=== PATIENT | male | born 1990 | race Caucasian/White ===

== ENCOUNTER 2018-01-29 20:32 | Inpatient (IN) | payer OTHER ==
[~2018-01-29] VITALS: Ht 177.8 cm; Wt 73.5 kg
[2018-01-29 20:38] VITALS: BP 131/90
[2018-01-29] MEDS ORDERED: LEXAPRO20 MG PO (20:43)
[2018-01-29] MEDS ORDERED: SEROQUEL XR150 M1 PO (20:44)
[2018-01-29 21:10] LABS: HEMATOCRIT 52.2 % (42.0-52.0); MCH 33.2 pg (26.0-34.0); MCHC 34.4 g/dL (28.0-37.0); MCV 96.5 fL (80.0-100.0); MPV 8.5 fl. (7.2-11.1); NUCLEATED RBCS 0 /100WBC; PLATELET COUNT* 188 thou/uL (150-400); RBC 5.41 mil/uL (4.50-6.00); RDW-CV 13.7 % (10.5-14.5); WBC 12.3 thou/uL (4.0-11.0)
--- NOTE | 2018-01-29 21:16 | NUR ---
ON TRIAGE QUESTIONS, PT STATES THOUGHTS OF LIFE NOT BEING WORTH LIVING. STATES LOTS OF PAIN AND SICK OF BEING SICK, BUT DENIES BEING SUICIDAL OR HAVING ANY PLANS FOR SUICIDE. CHARGE NURSE NOTIFIED. PT DENIES WANTING TO END LIFE.
[2018-01-29 21:17] LABS: APTT 24.1 Seconds (25.0-31.3); INR 1.1; PROTIME 11.2 Seconds (9.20-11.50)
[2018-01-29 21:25] LABS: CREATININE 0.9 mg/dL (0.6-1.3)
[2018-01-29 21:29] LABS: ALBUMIN 4.8 g/dL (3.4-5.0); MAGNESIUM 1.5 mg/dL (1.8-2.4); TOTAL BILIRUBIN 3.4 mg/dL (<0.1-1.0); TOTAL PROTEIN 8.4 g/dL (6.4-8.2)
[2018-01-29 21:36] LABS: URINE BILIRUBIN NEGATIVE (Negative); URINE BLOOD NEGATIVE (Negative); URINE CLARITY CLEAR; URINE COLOR YELLOW; URINE GLUCOSE-RANDOM NEGATIVE (Negative); URINE LEUKOCYTES-REFLEX NEGATIVE (Negative); URINE NITRITE-REFLEX NEGATIVE (Negative); URINE PROTEIN NEGATIVE (Negative); URINE SPECIFIC GRAVITY >= 1.030 (1.005-1.030); URINE UROBILINOGEN 0.2 E.U./dl (0.2-1.0)
[2018-01-29 21:37] LABS: URINE KETONES 3+ (Negative)
[2018-01-29 21:40] LABS: ABSOLUTE LYMPHOCYTES 2.1 thou/uL (0.8-5.3); ABSOLUTE MONOCYTES 0.2 thou/uL (0.0-1.2); ANISOCYTOSIS 1+; PLATELET ESTIMATE ADEQUATE
[2018-01-29 21:41] LABS: TOXIC GRANULATION 1+
[2018-01-29 21:47] LABS: AMP/METHAMP Negative (Negative); BARBITURATES Negative (Negative); BENZODIAZEPINES Negative (Negative); COCAINE Negative (Negative); METHADONE Negative (Negative); OPIATES Negative (Negative); PCP Negative (Negative); THC POSITIVE (Negative)
[2018-01-30] VITALS (7 sets, daily range): BP systolic 112–145; BP diastolic 70–97
[2018-01-30 04:52] LABS: HEMATOCRIT 48.8 % (42.0-52.0); HEMOGLOBIN 16.3 gm/dL (14.0-18.0); MCH 33.2 pg (26.0-34.0); MCHC 33.5 g/dL (28.0-37.0); MCV 99.1 fL (80.0-100.0); MPV 8.7 fl. (7.2-11.1); RBC 4.92 mil/uL (4.50-6.00); RDW-CV 13.8 % (10.5-14.5); WBC 11.8 thou/uL (4.0-11.0)
[2018-01-30 05:16] LABS: ALBUMIN 4.1 g/dL (3.4-5.0); CALCIUM 8.8 mg/dL (8.5-10.1); MAGNESIUM 2.1 mg/dL (1.8-2.4); PHOSPHORUS* 3.6 mg/dL (2.5-4.9); TOTAL BILIRUBIN 2.8 mg/dL (<0.1-1.0); TOTAL PROTEIN 7.2 g/dL (6.4-8.2)
[2018-01-30 05:20] LABS: POTASSIUM 4.3 mmol/L (3.5-5.1)
--- NOTE | 2018-01-30 06:12 | NUR ---
RECEIVED REPORT FROM ER NURSE MARY LOU AT 0000, PT ARRIVED TO UNIT AT 0015. PT ORIENTED TO ROOM AND CALL LIGHT. PT C/O N/V, TREMORS VISIBLE, PT MODERATELY ANXIOUS. INITIAL CIWA-AR SCORE 10. DR. SANTANA NOTIFIED AT 0130, NEW ORDERS RECEIVED. IV FLUIDS INFUSING, RECREATIONAL RESORT MANAGER IN PLACE, TRACING SINUS ARRHYTHMIA. HOURLY ROUNDING COMPLETED. CALL LIGHT WITHIN REACH.
[2018-01-30 08:33] LABS: CALCIUM 8.2 mg/dL (8.5-10.1)
--- NOTE | 2018-01-30 11:10 | EKG ---
[place] [address] ELECTROCARDIOGRAM REPORT Name: ROOSEVELT IBRAHIM Room: [address] ADM IN .R.#: [id number] Admission: 01/29/18 Attend Phys: Ray Sandoval Discharge: Date of : 88 Report #: [id number] THIS REPORT FOR: //name// [facility] ED Test Date: 2018-01-29 Test Time: 21:47:06 Pat Name: ROOSEVELT AKINSKINS Department: Room: [facility] Gender: M Visual Coordinator: Lisa SMITH : 1990 Requested By: Radha Nieves Order Number: [id number] MD: Napoleon Almaraz Measurements Intervals [place] Rate: 62 P: 257 MN: 109 QRS: -44 QRSD: 87 T: -6 QT: 399 QTc: 406 Interpretive Statements Ectopic atrial rhythm Short MN interval Left anterior fascicular block Borderline T abnormalities, inferior leads No previous ECG available for comparison Electronically Signed On 01-30-2018 11:10:20 SERVICE ESTABLISHMENT ATTENDANT by Napoleon Almaraz [email or web address] <ELECTRONICALLY SIGNED> By: Napoleon Almaraz MD, FACC 01/30/18 1110 2147 2147 Napoleon Almaraz MD, FAC /EPI
--- NOTE | 2018-01-30 16:01 | NUR ---
ATTEMPTED TO SEE PT, WAS SEDATED AFTER ATIVAN. WILL ATTEMPT TO SEE TOMORROW
[2018-01-31] VITALS: BP 113/62
[2018-01-31 04:55] LABS: HEMATOCRIT 44.1 % (42.0-52.0); MCH 33.8 pg (26.0-34.0); MCV 99.6 fL (80.0-100.0); MPV 8.3 fl. (7.2-11.1); RBC 4.43 mil/uL (4.50-6.00); RDW-CV 13.7 % (10.5-14.5); WBC 5.1 thou/uL (4.0-11.0)
[2018-01-31 05:24] LABS: CALCIUM 8.3 mg/dL (8.5-10.1); CREATININE 0.8 mg/dL (0.6-1.3); MAGNESIUM 1.9 mg/dL (1.8-2.4); TOTAL BILIRUBIN 2.8 mg/dL (<0.1-1.0); TOTAL PROTEIN 5.5 g/dL (6.4-8.2)
[2018-01-31 05:31] LABS: POTASSIUM 3.2 mmol/L (3.5-5.1)
--- NOTE | 2018-01-31 07:05 | NUR ---
RECEIVED REPORT AND ASSUMED CARE AT 1900. VSS. CARDIAC MONITORING IN PLACE. PT REPORTS MILD HEADACHE, NAUSEA. PRN MEDICATION ADMIN PER ORDERS. ASSESSMENT COMPLETED CHARTED.DISCUSSED PLAN OF CARE WITH PT, VERBALIZED UNDERSTANDING. HOURLY ROUNDING COMPLETED AND ALL NEEDS MET. PT UPA D GLENNY IN ROOM, ON RA CIWA COMPLETED Q4 1999=10 0000= 9 0400= 4. MEDICATION ADMIN PER EMAR. NURSING WILL CONTINUE TO MONITOR
[2018-01-31 08:25] VITALS: BP 109/71
--- NOTE | 2018-01-31 11:48 | NUR ---
MET WITH PT TO DISCUSS HOME SITUATION/DC PLANNING. PT LIVES WITH HIS BROTHER. HIS PARENTS LIVE CLOSEBY AND ARE SUPPORTIVE. PT STATES HE LOST HIS JOB LAST MONTH, THOUGHT HE HAD INSURANCE BUT NO LONGER. DID TALK WITH HIM ABOUT CONTACTING THE EMPLOYER ABOUT 'COBRA'. HE STATED HE WOULD OR HIS FAMILY COULD HELP HIM. PT REPORTS THAT HE DOES ABUSE ETOH AND STRUGGLES WTIH DEPRESSION. HAS BEEN ON MEDS THRU DR SOLORIO IN [place] AND STATES STILL TAKING THEM. HE HAS BEEN TO INPT ETOH REHAB AT [facility] OUT OF STATE AND STAYED SOBER ABOUT 2 WKS. HAS BEEN TO AA AND HAS BEEN TO [facility] FOR ASSESSMENT IN THE PAST. SUPPORT GIVEN, TALKED WITH HIM ABOUT ETOH USE/ADDITION AND DISCUSSED OPTIONS FOR REHAB. ENCOURAGED HIM TO CONTACT [facility] FOR ASSESSMENT AND POSSIBLE [place] AA AND FINDING A SPONSOR. HE SEEMED MOTIVATED TO GET HELP. PT PLANS TO RETURN HOME WITH HIS BROTHER AT [place]. GAVE COMMUNITY RESOURCES AND FIND A PHYSICIAN INFO ALSO WILL FOLLOW
--- NOTE | 2018-01-31 12:27 | NUR ---
PT ALERT, ORIENTED AND ALL VSS ON ROOMA AIR. CIWA PROTOCOL PER ORDERS. PT STATES FEELING DEPRESSED, DENIES SI/HI/AVH. STATES HE IS INTERESTED IN TREATMENT UPON DC. EDUCATED ON SAFETY AND PLAN OF CARE. CALL LIGHT IN REACH. PLEASE SEE ASSESSMENT FOR ADDITIONAL INFORMATION. WILL CONT MONITOR
[2018-01-31 16:00] VITALS: BP 104/70
[2018-01-31 20:00] VITALS: BP 114/79
[2018-02-01 04:07] LABS: HEMATOCRIT 46.2 % (42.0-52.0); HEMOGLOBIN 15.8 gm/dL (14.0-18.0); MCH 33.9 pg (26.0-34.0); MCHC 34.2 g/dL (28.0-37.0); MCV 99.2 fL (80.0-100.0); MPV 8.4 fl. (7.2-11.1); RBC 4.66 mil/uL (4.50-6.00); RDW-CV 13.6 % (10.5-14.5)
[2018-02-01 04:45] LABS: DIRECT BILIRUBIN 0.3 mg/dL (<0.1-0.3); TOTAL BILIRUBIN 2.8 mg/dL (<0.1-1.0)
[2018-02-01 04:50] LABS: ALBUMIN 3.1 g/dL (3.4-5.0); CALCIUM 8.8 mg/dL (8.5-10.1); CREATININE 0.7 mg/dL (0.6-1.3); MAGNESIUM 1.7 mg/dL (1.8-2.4); PHOSPHORUS* 2.5 mg/dL (2.5-4.9); POTASSIUM 3.8 mmol/L (3.5-5.1); TOTAL BILIRUBIN 2.8 mg/dL (<0.1-1.0); TOTAL PROTEIN 5.7 g/dL (6.4-8.2)
--- NOTE | 2018-02-01 05:40 | NUR ---
ASSUMED PATIENT CARE AT 1930. PATIENT ALERT ANDORIENTED TIMES FOUR. NO OCMPLAINTS OF PAIN, MINOR NAUSEA AND SOME ANXIETY NOTED. ALSO PRESENT WERE SLIGHT TREMORS IN BILATERAL ARMS AND HANDS, STATED THAT HE WAS ANXIOUS, MEDICATIONS GIVEN. WELDER PRODUCTION LINE COMBINATION AND HOURLY TOUNDING COMPLETED CHARTED
[2018-02-01 08:51] VITALS: BP 120/87
--- NOTE | 2018-02-01 10:00 | NUR ---
TRANSFER NOTE - REC REPORT FROM CONSTANTINO HURST. NO QUESTIONS. ALL BELONGINGS PRESENT WITH PT. NO COMPLAINTS AT THIS TIME. ORIENTED TO PHONE AND CALL LIGHT SYSTEM. WILL CONTINUE TO MONITOR.
[2018-02-01 12:03] VITALS: BP 114/87
--- NOTE | 2018-02-01 16:02 | NUR ---
SHIFT NOTE - PT OFF UNIT THIS AFTERNOON FOR CCK-PIPIDA. PT STILL WITH FINE TREMOR. ATIVAN IS HELPING. STATES HE FEELS BETTER THAN WHEN HE FIRST CAME IN. WILL CONTINUE TO MONITOR.
[2018-02-01 20:08] VITALS: BP 116/86
[2018-02-02] VITALS: BP 123/85
[2018-02-02 04:00] VITALS: BP 118/86
[2018-02-02 05:15] LABS: HEMATOCRIT 46.9 % (42.0-52.0); MCH 33.6 pg (26.0-34.0); MCHC 34.1 g/dL (28.0-37.0); MCV 98.5 fL (80.0-100.0); MPV 8.7 fl. (7.2-11.1); RBC 4.76 mil/uL (4.50-6.00); RDW-CV 13.5 % (10.5-14.5); WBC 6.4 thou/uL (4.0-11.0)
[2018-02-02 05:27] LABS: ALBUMIN 3.2 g/dL (3.4-5.0); CALCIUM 8.9 mg/dL (8.5-10.1); CREATININE 0.7 mg/dL (0.6-1.3); MAGNESIUM 1.7 mg/dL (1.8-2.4); POTASSIUM 3.8 mmol/L (3.5-5.1); TOTAL BILIRUBIN 1.8 mg/dL (<0.1-1.0); TOTAL PROTEIN 5.8 g/dL (6.4-8.2)
[2018-02-02 07:50] VITALS: BP 111/79
[2018-02-02 11:34] VITALS: BP 108/75
[2018-02-02] MEDS ORDERED: MELATONIN5 M1 PO (12:11)
[2018-02-02] MEDS ORDERED: CELEXA40 MG PO (12:11)
[2018-02-02] MEDS ORDERED: PRENATAL PO (12:11)
--- NOTE | 2018-02-02 12:36 | NUR ---
CONTINUE TO FOLLOW, HAS ORDERS FOR DC HOME. REVIEWED ETOH REHAB RESOURCES WTIH PT. HE STATED HIS PARENTS ARE ASSISTING HIM WITH FINDING REHAB AFTER DC. ENCOURAGEMENT GIVEN
[2018-02-02 13:58] VITALS: BP 108/75
[2018-02-02 15:49] VITALS: BP 120/88
--- NOTE | 2018-02-02 16:32 | NUR ---
PT CARE ASSUMED AFTER REPORT. ASSESSMENT COMPLETE. SR ON MONITOR. PT DISCHARGED HOME. COPY OF DISCHARGE PAPERWORK TO PT WITH EXPLAINATION. PT VERBALIZED UNDERSTANDING. IV ACCESS REMOVED. PT [facility] WITH NURDING STAFF TO MAIN ENTRANCE WHERE HE NET HIS RIDE.
--- NOTE | 2018-02-03 12:23 | CON ---
[address] [address] CONSULTATION Name: ROOSEVELT IBRAHIM Room: [address]#: [id number] Admission: 01/29/18 Attend Phys: Ray Sandoval Discharge: 02/02/18 Date of : 88 Report #: [id number] THIS REPORT FOR: //name// CC: USMAN physician/PCP Pablito Hopkins DATE OF SERVICE: 01/30/2018 HISTORY OF PRESENT ILLNESS: This is a 27-year-old man with past medical history of alcohol abuse and depression who is presenting with an episode of acute alcohol binge. The patient reports he goes on episodes of alcohol binge when he consumes about a fifth of hard liquor every day for 2-3 days. These are followed by episodes of nausea and vomiting followed by loose stools. The patient reports he has had several episodes of emesis prior to presentation to the hospital and some included blood-tinged emesis. The patient also reports passing loose stools and having about 3-4 bowel movements per day. The patient reports epigastric abdominal pain along with nausea and vomiting. The patient reports these symptoms happen to him whenever he ingests large amount of alcohol. PAST MEDICAL HISTORY: Depression. PAST SURGICAL HISTORY: None. SOCIAL HISTORY: The patient smokes a few cigarettes every day. Reports drinking up to a fifth of hard liquor every day and also reports intermittent marijuana use. FAMILY HISTORY: There is no family history of colorectal, gastric or esophageal cancer. REVIEW OF SYSTEMS: A comprehensive 10-point review of systems is negative except for what was mentioned in the HPI. PHYSICAL EXAMINATION: GENERAL: The patient is alert, awake and oriented x 3. HEENT: Pupils are equal, round, reactive to light and accommodation. Mucous membranes are moist. There is no congestion. LUNGS: Clear to auscultation bilaterally. CARDIOVASCULAR: Rate and rhythm regular, S1 and S2 present. ABDOMEN: Soft. There is no distention, guarding or rigidity. EXTREMITIES: Warm and well perfused. NEUROLOGIC: The patient is extremely tremulous, arousable and moves all extremities easily. VITAL SIGNS: Temperature 36.6, pulse rate 118, respirations 16, blood pressure 117/70, pulse ox is 95% on room air ____. [place] [address] CONSULTATION Name: ALEXANDRIA,ROOSEVELT Lu Room: [address]#: [id number] Admission: 01/29/18 Attend Phys: Ray Sandoval Discharge: 02/02/18 Date of : 88 Report #: [id number] REVIEW OF SYSTEMS: Comprehensive 10-point review of systems is negative except for what was mentioned in the HPI. LABORATORY DATA: Hemoglobin 16.3, hematocrit 48.8 and platelet count 147 and WBC count 11.8. Sodium 138, potassium 4.3, chloride 98, bicarbonate 18, BUN 7 and creatinine 1. AST 39, ALT 43 and alkaline phosphatase 61. Lipase 125. Abdomen and pelvis CT performed demonstrates enlarged ____ colon with diffuse wall thickening suggestive of colitis. ____ almost the entire colon sparing the distal sigmoid and rectal vault regions. There is then the hepatic steatosis present. ASSESSMENT AND PLAN: This is a pleasant 27-year-old male with past medical history of depression and alcohol abuse who presents with another episode of alcohol binge causing nausea, vomiting and diarrhea. The patient did notice some amount of blood-tinged emesis during his episodes of nausea. The patient's hemoglobin appears to be stable and there are no signs of active GI bleeding at this time. Therefore, we will hold off on EGD at this time. The patient does have evidence of colitis on CT scan. I would recommend stool culture and C. diff to evaluate if there is an infectious cause. Further recommendations will be based on these results. I would continue placing him on a clear liquid diet and Pepcid b.i.d. If his symptoms of reflux and nausea do not improve, we can consider escalating it to PPI b.i.d. <ELECTRONICALLY SIGNED> By: Lenny Suarez MD 02/03/18 1223 2312 [id number] Suarez MD /nt
== END 2018-02-02 18:00 | disposition home or self-care (01) | DRG 392 ==
LOC: M.ERS 20:32 → M.2W 23:03 → M.TBA-ER 23:03 → M.2W 01-30 00:04 → M.ORTHSURG 01-31 19:09 → M.2W 02-01 09:48
PROVIDERS: Internal Medicine; Internal Medicine Gastroenterology; Nurse Practitioner Family; ADMIT Internal Medicine
DX: A08.4 Viral intestinal infection, unspecified (principal); K92.0 Hematemesis; F10.239 Alcohol dependence with withdrawal, unspecified; F12.90 Cannabis use, unspecified, uncomplicated; F32.9 Major depressive disorder, single episode, unspecified; F17.210 Nicotine dependence, cigarettes, uncomplicated; F10.229 Alcohol dependence with intoxication, unspecified; Z79.899 Other long term (current) drug therapy

== ENCOUNTER 2018-02-15 18:22 | Emergency (ER) | payer OTHER ==
[~2018-02-15] VITALS: Ht 177.8 cm; Wt 72.6 kg
[~2018-02-15 18:22] MED LIST: CELEXA40 MG PO; LEXAPRO20 MG PO; MELATONIN5 M1 PO; PRENATAL PO; SEROQUEL XR150 M1 PO
[2018-02-15] MEDS ORDERED: LEXAPRO 10 MG T10 M2 PO (18:47)
[2018-02-15 19:16] LABS: URINE BLOOD NEGATIVE (Negative); URINE CLARITY CLEAR; URINE COLOR YELLOW; URINE GLUCOSE-RANDOM NEGATIVE (Negative); URINE KETONES 1+ (Negative); URINE LEUKOCYTES-REFLEX NEGATIVE (Negative); URINE NITRITE-REFLEX NEGATIVE (Negative); URINE PROTEIN 2+ (Negative)
[2018-02-15 19:19] LABS: ICTOTEST (BILI CONFIRMATORY) Negative (Negative); URINE BILIRUBIN 1+ (Negative)
[2018-02-15 19:27] LABS: HYALINE CASTS 0-3 Few /LPF (None Seen); MUCUS 4-6 Moderate strn/LPF (None Seen); URINE WBC-REFLEX 0-5 Rare /HPF (0-5)
[2018-02-15 19:28] LABS: BACTERIA-REFLEX 1-9 Few /HPF (None Seen); CRYSTALS None Seen /LPF (None Seen); SQUAMOUS NONE SEEN /LPF (0-3); URINE RBC None Seen /HPF (0-2)
[2018-02-15 19:36] LABS: HEMOGLOBIN 18.1 gm/dL (14.0-18.0); MCH 32.6 pg (26.0-34.0); MCHC 34.1 g/dL (28.0-37.0); MCV 95.7 fL (80.0-100.0); MPV 8.3 fl. (7.2-11.1); NUCLEATED RBCS 0 /100WBC; PLATELET COUNT* 374 thou/uL (150-400); RBC 5.54 mil/uL (4.50-6.00); RDW-CV 13.8 % (10.5-14.5); WBC 17.8 thou/uL (4.0-11.0)
[2018-02-15 19:43] LABS: CREATININE 1.3 mg/dL (0.6-1.3); POTASSIUM 3.4 mmol/L (3.5-5.1)
[2018-02-15 19:48] LABS: ALBUMIN 4.6 g/dL (3.4-5.0); TOTAL BILIRUBIN 1.6 mg/dL (<0.1-1.0); TOTAL PROTEIN 8.6 g/dL (6.4-8.2)
[2018-02-15 20:01] LABS: ABSOLUTE EOSINOPHILS 0.2 thou/uL (0.0-0.7); ABSOLUTE LYMPHOCYTES 1.1 thou/uL (0.8-5.3); ABSOLUTE MONOCYTES 0.2 thou/uL (0.0-1.2); ABSOLUTE NEUTROPHILS 16.4 thou/uL (1.6-8.1); PLATELET ESTIMATE ADEQUATE
[2018-02-15] MEDS ORDERED: COMPAZINE10 MG PO (22:06)
[2018-02-15 22:21] VITALS: BP 104/67
--- NOTE | 2018-02-16 13:45 | EKG ---
[place] [address] ELECTROCARDIOGRAM REPORT Name: ROOSEVELT IBRAHIM Room: [facility]#: [id number] Admission: 02/15/18 Attend Phys: Discharge: 02/15/18 Date of : 88 Report #: [id number] THIS REPORT FOR: //name// [facility] ED Test Date: 2018-02-15 Test Time: 18:43:40 Pat Name: ROOSEVELT IBRAHIM Department: Room: Gender: M Car Rental Agency Manager: : 1990 Requested By: Thai Medley Order Number: [id number] Reading MD: Napoleon Almaraz Measurements Intervals [place] Rate: 70 P: -42 CT: 114 QRS: -46 QRSD: 92 T: 3 QT: 415 QTc: 448 Interpretive Statements Pacemaker spikes or artifacts Sinus rhythm Borderline short CT interval Left anterior fascicular block Compared to ECG 01/29/2018 21:47:06 Ectopic atrial rhythm no longer present T-wave abnormality no longer present Electronically Signed On 02-16-2018 13:45:51 OBGYN SPECIALIST by Napoleon Almaraz [email or web address] <ELECTRONICALLY SIGNED> By: Napoleon Almaraz MD, FAC 02/16/18 1345 1843 1843 Napoleon Almaraz MD, [facility] /EPI
== END 2018-02-15 22:21 | disposition home or self-care (01) ==
LOC: M.ERS 18:22
PROVIDERS: Physician Assistant
DX: R11.2 Nausea with vomiting, unspecified (principal); R10.84 Generalized abdominal pain; F17.200 Nicotine dependence, unspecified, uncomplicated

== ENCOUNTER 2018-03-20 10:18 | Emergency (ER) | payer OTHER ==
[~2018-03-20] VITALS: Ht 170.2 cm; Wt 68.0 kg
[~2018-03-20 10:18] MED LIST changes: +COMPAZINE10 MG PO; +LEXAPRO 10 MG T10 M2 PO
[2018-03-20 11:48] LABS: HEMATOCRIT 55.5 % (42.0-52.0); HEMOGLOBIN 18.9 gm/dL (14.0-18.0); MCH 32.8 pg (26.0-34.0); MCV 96.4 fL (80.0-100.0); MPV 8.7 fl. (7.2-11.1); NUCLEATED RBCS 0 /100WBC; PLATELET COUNT* 343 thou/uL (150-400); RBC 5.76 mil/uL (4.50-6.00); RDW-CV 14.3 % (10.5-14.5); WBC 14.3 thou/uL (4.0-11.0)
[2018-03-20 12:00] LABS: CALCIUM 10.3 mg/dL (8.5-10.1); CREATININE 1.2 mg/dL (0.6-1.3)
[2018-03-20 12:05] LABS: TOTAL BILIRUBIN 3.5 mg/dL (<0.1-1.0); TOTAL PROTEIN 8.7 g/dL (6.4-8.2)
[2018-03-20 12:17] LABS: URINE BILIRUBIN NEGATIVE (Negative); URINE BLOOD TRACE (Negative); URINE CLARITY CLEAR; URINE COLOR YELLOW; URINE GLUCOSE-RANDOM NEGATIVE (Negative); URINE KETONES 2+ (Negative); URINE LEUKOCYTES-REFLEX NEGATIVE (Negative); URINE NITRITE-REFLEX NEGATIVE (Negative); URINE PROTEIN 1+ (Negative); URINE SPECIFIC GRAVITY >= 1.030 (1.005-1.030); URINE UROBILINOGEN 0.2 E.U./dl (0.2-1.0)
[2018-03-20 12:24] LABS: AMP/METHAMP Negative (Negative); BARBITURATES Negative (Negative); BENZODIAZEPINES Negative (Negative); COCAINE Negative (Negative); METHADONE Negative (Negative); OPIATES Negative (Negative); PCP Negative (Negative); THC POSITIVE (Negative)
[2018-03-20 12:30] LABS: ABSOLUTE LYMPHOCYTES 1.4 thou/uL (0.8-5.3); ABSOLUTE MONOCYTES 0.4 thou/uL (0.0-1.2); ABSOLUTE NEUTROPHILS 12.4 thou/uL (1.6-8.1); ATYPICAL LYMPHS 3 %; PLATELET ESTIMATE ADEQUATE
[2018-03-20] MEDS ORDERED: FOLIC ACID 1 MG1 MG PO (13:49)
[2018-03-20] MEDS ORDERED: ZOFRAN ODT4 MG PO (13:49)
[2018-03-20] MEDS ORDERED: LEVSIN0.125 MG PO (13:49)
[2018-03-20] MEDS ORDERED: PHENERGAN25 M1 RECTAL (13:49)
[2018-03-20] MEDS ORDERED: VITAMIN B-1100 M1 PO (13:49)
[2018-03-20] MEDS ORDERED: UNICOMPLEX M TA1 TA1 PO (13:49)
[2018-03-20 15:33] VITALS: BP 128/89
== END 2018-03-20 15:32 | disposition home or self-care (01) ==
LOC: M.ERS 10:18
PROVIDERS: Nurse Practitioner Family
DX: K31.89 Other diseases of stomach and duodenum (principal); R11.10 Vomiting, unspecified; F10.10 Alcohol abuse, uncomplicated; Z98.890 Other specified postprocedural states

== ENCOUNTER 2018-04-11 17:50 | Emergency (ER) | payer OTHER ==
[~2018-04-11] VITALS: Ht 177.8 cm; Wt 74.8 kg
[~2018-04-11 17:50] MED LIST changes: +FOLIC ACID 1 MG1 MG PO; +LEVSIN0.125 MG PO; +PHENERGAN25 M1 RECTAL; +UNICOMPLEX M TA1 TA1 PO; +VITAMIN B-1100 M1 PO; +ZOFRAN ODT4 MG PO
[2018-04-11] MEDS ORDERED: OXYCODONE HCL 55 MG PO (19:00)
[2018-04-11 19:32] VITALS: BP 118/66
== END 2018-04-11 19:37 | disposition home or self-care (01) ==
LOC: M.ERS 17:50
DX: S62.306A Unspecified fracture of fifth metacarpal bone, right hand, initial encounter for closed fracture (principal); F41.9 Anxiety disorder, unspecified; Z88.6 Allergy status to analgesic agent; W22.8XXA Striking against or struck by other objects, initial encounter; Y93.89 Activity, other specified; Y92.89 Other specified places as the place of occurrence of the external cause; Y99.8 Other external cause status

== ENCOUNTER 2018-05-27 21:17 | Inpatient (IN) | payer OTHER ==
[~2018-05-27] VITALS: Ht 177.8 cm; Wt 65.9 kg
--- NOTE | ~2018-05-27 | CON ---
[address] [address] CONSULTATION Name: ROOSEVELT IBRAHIM Room: [address] IN ..#: [id number] Admission: 05/27/18 Attend Phys: Marino Bejarano MD Discharge: Date of : [birth year] Report #: [id number] THIS REPORT FOR: //name// CC: FAM physician/PCP Marino Bejarano DATE OF SERVICE: 05/29/2018 REQUESTING PHYSICIAN: Dr. Marino Bejarano. HISTORY OF PRESENT ILLNESS: This is a 28-year-old male with history of alcoholism who reports that he has been drinking significantly for a long time and he has episodes of sobriety in between, but he goes back to drinking again. The patient also has long history of marijuana use as he reports that since he has been 14 years old he has been smoking marijuana. Recently, he consumes about a gram every other day. He complains of intermittent episodes of vomiting, which can last from hours to a couple of days. These episodes are associated with pain and persistent vomiting. He denies any symptoms between these episodes, The patient also admits that he has been scoped multiple times in reference to his problem and there was no significant finding. Currently, he is withdrawing from alcohol and he is on 2 mg Ativan protocol q. 8 hours. PAST MEDICAL HISTORY: Significant for history of bipolar mood disorder, anxiety, alcohol dependence, abdominal surgery, left clavicular repair, and recurrent symptoms of nausea and vomiting. ALLERGIES: No known drug allergy. MEDICATIONS: Please refer to MAR. SOCIAL HISTORY: The patient admits smoking 4-5 pack of cigarette per week. He also admits to drinking 1 pint of vodka daily and 1 gram of marijuana every other day. He lives with his girlfriend who does not drink or use marijuana. She may occasionally have a glass of wine. FAMILY HISTORY: Significant for leukemia in the mother. PHYSICAL EXAMINATION: VITAL SIGNS: Reveals blood pressure of 109/75, respiration 18, pulse 63, temperature 98.3. LUNGS: Clear. CARDIOVASCULAR: [place] [address] CONSULTATION Name: ROOSEVELT IBRAHIM Room: [address] IN [facility].#: [id number] Admission: 05/27/18 Attend Phys: Marino Bejarano MD Discharge: Date of : 88 Report #: [id number] ABDOMEN: Soft, nontender, nondistended. Bowel sounds are positive. Labs and imaging have been reviewed. 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 We will ask him to remain abstinence from alcohol and marijuana. We will see if he has been checked for viral hepatitis serology in the past and if not, we will order this. We will continue Ativan and antiemetics and continue to follow the patient. By: 0836 0115Trever Cuello MD /satnam
[~2018-05-27 21:17] MED LIST changes: +OXYCODONE HCL 55 MG PO; -SEROQUEL XR150 M1 PO; +SEROQUEL XR150 MG PO
[2018-05-27 21:21] VITALS: BP 113/85
[2018-05-27 21:46] LABS: EOSINOPHILS 0.2 %; NUCLEATED RBCS 0 /100WBC
[2018-05-27 21:48] LABS: ABSOLUTE LYMPHOCYTES 0.9 thou/uL (0.8-5.3); ABSOLUTE MONOCYTES 0.4 thou/uL (0.0-1.2); BASOPHILS 0.5 %; HEMATOCRIT 54.7 % (42.0-52.0); HEMOGLOBIN 18.9 gm/dL (14.0-18.0); LYMPHOCYTES 21.1 %; MCH 33.1 pg (26.0-34.0); MCHC 34.6 g/dL (28.0-37.0); MCV 95.5 fL (80.0-100.0); MONOCYTES 8.2 %; MPV 8.7 fl. (7.2-11.1); PLATELET COUNT* 64 thou/uL (150-400); RBC 5.73 mil/uL (4.50-6.00); RDW-CV 14.3 % (10.5-14.5); WBC 4.3 thou/uL (4.0-11.0)
[2018-05-27 22:04] LABS: ALBUMIN 4.6 g/dL (3.4-5.0); CALCIUM 10.2 mg/dL (8.5-10.1); CREATININE 0.9 mg/dL (0.6-1.3); MAGNESIUM 1.6 mg/dL (1.8-2.4); POTASSIUM 3.2 mmol/L (3.5-5.1); TOTAL BILIRUBIN 2.4 mg/dL (<0.1-1.0); TOTAL PROTEIN 8.4 g/dL (6.4-8.2)
[2018-05-27 22:45] LABS: URINE BLOOD 1+ (Negative); URINE CLARITY CLEAR; URINE COLOR DARK YELLOW; URINE GLUCOSE-RANDOM NEGATIVE (Negative); URINE LEUKOCYTES-REFLEX NEGATIVE (Negative); URINE NITRITE-REFLEX NEGATIVE (Negative); URINE PROTEIN 2+ (Negative); URINE SPECIFIC GRAVITY >= 1.030 (1.005-1.030); URINE UROBILINOGEN 0.2 E.U./dl (0.2-1.0)
[2018-05-27 22:48] LABS: AMP/METHAMP Negative (Negative); BARBITURATES Negative (Negative); BENZODIAZEPINES Negative (Negative); COCAINE Negative (Negative); METHADONE Negative (Negative); OPIATES Negative (Negative); PCP Negative (Negative); THC POSITIVE (Negative)
[2018-05-27 22:54] LABS: ICTOTEST (BILI CONFIRMATORY) Positive (Negative); URINE BILIRUBIN 1+ (Negative); URINE KETONES 3+ (Negative)
[2018-05-27 23:57] LABS: HYALINE CASTS 0-3 Few /LPF (None Seen); MUCUS >6 Heavy strn/LPF (None Seen); SQUAMOUS 0-3 Few /LPF (0-3)
[2018-05-27 23:59] LABS: BACTERIA-REFLEX 1-9 Few /HPF (None Seen); URINE RBC 3-10 Few /HPF (0-2); URINE WBC-REFLEX 0-5 Rare /HPF (0-5)
[2018-05-28] VITALS (8 sets, daily range): BP systolic 99–127; BP diastolic 56–90
[2018-05-28] LABS: CRYSTALS None Seen /LPF (None Seen)
[2018-05-28] MEDS ORDERED: OXYCONTIN10 M1 PO (21:08)
[2018-05-29] VITALS: BP 115/81
[2018-05-29 03:50] VITALS: BP 104/68
[2018-05-29 05:05] LABS: PROTIME 10.7 Seconds (9.20-11.50)
[2018-05-29 07:43] LABS: ALBUMIN 3.2 g/dL (3.4-5.0); CALCIUM 8.3 mg/dL (8.5-10.1); CREATININE 0.9 mg/dL (0.6-1.3); POTASSIUM 3.7 mmol/L (3.5-5.1); TOTAL BILIRUBIN 4.8 mg/dL (<0.1-1.0); TOTAL PROTEIN 5.8 g/dL (6.4-8.2)
[2018-05-29 08:10] VITALS: BP 108/72
[2018-05-29 11:37] LABS: ABSOLUTE BASOPHILS 0.1 thou/uL (0.0-0.2); ABSOLUTE EOSINOPHILS 0.1 thou/uL (0.0-0.7); ABSOLUTE LYMPHOCYTES 0.8 thou/uL (0.8-5.3); ABSOLUTE MONOCYTES 0.5 thou/uL (0.0-1.2); ABSOLUTE NEUTROPHILS 3.2 thou/uL (1.6-8.1); BASOPHILS 1.3 %; EOSINOPHILS 2.2 %; HEMATOCRIT 49.2 % (42.0-52.0); LYMPHOCYTES 17.7 %; MCH 32.9 pg (26.0-34.0); MCHC 33.6 g/dL (28.0-37.0); MCV 97.9 fL (80.0-100.0); MONOCYTES 9.7 %; MPV 9.9 fl. (7.2-11.1); NUCLEATED RBCS 0 /100WBC; POLYS 69.1 %; RBC 5.03 mil/uL (4.50-6.00); RDW-CV 14.3 % (10.5-14.5); WBC 4.7 thou/uL (4.0-11.0)
[2018-05-29 11:41] VITALS: BP 115/78
[2018-05-29 12:00] LABS: HEMOGLOBIN 16.5 gm/dL (14.0-18.0)
[2018-05-29 12:01] LABS: PLATELET COUNT* 38 thou/uL (150-400)
[2018-05-29 13:04] LABS: PLATELET ESTIMATE DECREASED
[2018-05-29 13:06] LABS: ANISOCYTOSIS 1+; POIKILOCYTOSIS 1+
[2018-05-29 16:00] VITALS: BP 98/71
[2018-05-29 20:00] VITALS: BP 119/75
[2018-05-30] VITALS: BP 111/76
[2018-05-30 04:00] VITALS: BP 109/75
[2018-05-30 08:54] VITALS: BP 120/91
[2018-05-30 12:58] VITALS: BP 119/79
[2018-05-30 16:06] VITALS: BP 94/70
[2018-05-30 19:05] VITALS: BP 125/89
[2018-05-31 00:02] VITALS: BP 116/80
[2018-05-31 04:00] VITALS: BP 115/80
[2018-05-31 08:00] VITALS: BP 121/86
[2018-05-31] MEDS ORDERED: ONDANSETRON HCL4 M2 PO (10:39)
[2018-05-31 11:02] LABS: HEMATOCRIT 46.9 % (42.0-52.0); MCH 32.9 pg (26.0-34.0); MCHC 34.2 g/dL (28.0-37.0); MCV 96.3 fL (80.0-100.0); MPV 9.2 fl. (7.2-11.1); NUCLEATED RBCS 0 /100WBC; PLATELET COUNT* 56 thou/uL (150-400); RBC 4.87 mil/uL (4.50-6.00); WBC 3.9 thou/uL (4.0-11.0)
[2018-05-31 11:30] LABS: ALBUMIN 3.4 g/dL (3.4-5.0); CALCIUM 8.7 mg/dL (8.5-10.1); CREATININE 0.8 mg/dL (0.6-1.3); POTASSIUM 3.4 mmol/L (3.5-5.1); TOTAL BILIRUBIN 1.7 mg/dL (<0.1-1.0); TOTAL PROTEIN 6.5 g/dL (6.4-8.2)
[2018-05-31 12:19] LABS: ABSOLUTE EOSINOPHILS 0.4 thou/uL (0.0-0.7); ABSOLUTE LYMPHOCYTES 1.2 thou/uL (0.8-5.3); ABSOLUTE MONOCYTES 0.3 thou/uL (0.0-1.2); PLATELET ESTIMATE DECREASED
[2018-05-31 12:25] VITALS: BP 126/93
[2018-05-31 12:25] LABS: LARGE PLATELETS FEW
[2018-05-31 12:33] LABS: ANISOCYTOSIS 1+; MICROCYTES 1+
[2018-05-31] MEDS ORDERED: PRENATAL VITAM1 EACH PO (13:53)
[2018-05-31] MEDS ORDERED: VITAMIN B-1100 M1 PO (13:54)
[2018-05-31 13:57] VITALS: BP 121/86
[2018-05-31 14:41] VITALS: BP 126/93
== END 2018-05-31 15:46 | disposition home or self-care (01) | DRG 896 ==
LOC: M.ERS 21:17 → M.TBA-ER 22:31 → M.2W 23:04 → M.TBA-ER 23:04 → M.2W 05-28 00:35
PROVIDERS: Internal Medicine; Internal Medicine Gastroenterology; Nurse Practitioner Family; ADMIT Family Medicine
DX: F10.239 Alcohol dependence with withdrawal, unspecified (principal); K25.4 Chronic or unspecified gastric ulcer with hemorrhage; G92 Toxic encephalopathy; D69.6 Thrombocytopenia, unspecified; F12.10 Cannabis abuse, uncomplicated; K70.9 Alcoholic liver disease, unspecified; K31.89 Other diseases of stomach and duodenum; R11.10 Vomiting, unspecified; K76.0 Fatty (change of) liver, not elsewhere classified; F17.210 Nicotine dependence, cigarettes, uncomplicated; E87.6 Hypokalemia; E87.8 Other disorders of electrolyte and fluid balance, not elsewhere classified; E83.52 Hypercalcemia; F31.9 Bipolar disorder, unspecified; F41.9 Anxiety disorder, unspecified; Z88.6 Allergy status to analgesic agent; Z79.899 Other long term (current) drug therapy

== ENCOUNTER 2020-01-05 18:48 | Emergency (ER) | payer MEDICAID ==
[~2020-01-05] VITALS: Ht 177.8 cm; Wt 72.6 kg
[~2020-01-05 18:48] MED LIST changes: +ONDANSETRON HCL4 M2 PO; +OXYCONTIN10 M1 PO; +PRENATAL VITAM1 EACH PO
[2020-01-05] MEDS ORDERED: VISTARIL50 MG PO (19:00)
[2020-01-05] MEDS ORDERED: DESYREL150 MG PO (19:01)
[2020-01-05] MEDS ORDERED: PROZAC40 MG PO (19:01)
[2020-01-05] MEDS ORDERED: GRALISE600 MG PO (19:01)
[2020-01-05 19:58] LABS: URINE BILIRUBIN NEGATIVE (Negative); URINE BLOOD NEGATIVE (Negative); URINE CLARITY CLEAR; URINE COLOR YELLOW; URINE GLUCOSE-RANDOM NEGATIVE (Negative); URINE LEUKOCYTES-REFLEX NEGATIVE (Negative); URINE NITRITE-REFLEX NEGATIVE (Negative); URINE PROTEIN TRACE (Negative); URINE SPECIFIC GRAVITY >= 1.030 (1.005-1.030); URINE UROBILINOGEN 0.2 E.U./dl (0.2-1.0)
[2020-01-05 20:05] LABS: URINE KETONES 3+ (Negative)
[2020-01-05 20:20] LABS: HEMOGLOBIN 16.4 gm/dL (14.0-18.0); MCH 29.2 pg (26.0-34.0); MCHC 32.9 g/dL (28.0-37.0); MCV 88.9 fL (80.0-100.0); MPV 7.5 fl. (7.2-11.1); NUCLEATED RBCS 0 /100WBC; PLATELET COUNT* 265 thou/uL (150-400); RBC 5.62 mil/uL (4.50-6.00); RDW-CV 15.2 % (10.5-14.5); WBC 29.3 thou/uL (4.0-11.0)
[2020-01-05 20:27] LABS: CALCIUM 9.3 mg/dL (8.5-10.1); CREATININE 1.2 mg/dL (0.6-1.3); POTASSIUM 4.6 mmol/L (3.5-5.1)
[2020-01-05 20:29] LABS: ALBUMIN 4.9 g/dL (3.4-5.0); MAGNESIUM 1.6 mg/dL (1.8-2.4); TOTAL BILIRUBIN 1.2 mg/dL (<0.1-1.0); TOTAL PROTEIN 8.7 g/dL (6.4-8.2)
[2020-01-05 21:01] LABS: ABSOLUTE LYMPHOCYTES 0.9 thou/uL (0.8-5.3); ABSOLUTE MONOCYTES 0.9 thou/uL (0.0-1.2); ABSOLUTE NEUTROPHILS 27.5 thou/uL (1.6-8.1); PLATELET ESTIMATE ADEQUATE
[2020-01-05 21:28] LABS: AMP/METHAMP Negative (Negative); BARBITURATES Negative (Negative); BENZODIAZEPINES Negative (Negative); COCAINE Negative (Negative); METHADONE Negative (Negative); OPIATES Negative (Negative); PCP Negative (Negative); THC POSITIVE (Negative)
[2020-01-05] MEDS ORDERED: ATIVAN1 M1 PO (23:00)
[2020-01-05] MEDS ORDERED: PHENERGAN 25 MG25 M1 PO ×2 (23:00→23:03)
[2020-01-05] MEDS ORDERED: CARAFATE 1 GM TA1 GM PO (23:03)
[2020-01-05] MEDS ORDERED: PROTONIX40 MG PO (23:03)
[2020-01-05 23:11] VITALS: BP 120/70
== END 2020-01-05 23:12 | disposition home or self-care (01) ==
LOC: M.ERS 18:48
PROVIDERS: Emergency Medicine
DX: K20.90 Esophagitis, unspecified without bleeding (principal); D72.829 Elevated white blood cell count, unspecified; F10.10 Alcohol abuse, uncomplicated; R11.2 Nausea with vomiting, unspecified; R19.7 Diarrhea, unspecified; Z79.899 Other long term (current) drug therapy; Y90.9 Presence of alcohol in blood, level not specified

== ENCOUNTER 2020-01-07 04:55 | Inpatient (IN) | payer MEDICAID ==
[~2020-01-07] VITALS: Ht 177.8 cm; Wt 76.7 kg
[~2020-01-07 04:55] MED LIST changes: +ATIVAN1 M1 PO; +CARAFATE 1 GM TA1 GM PO; +DESYREL150 MG PO; +GRALISE600 MG PO; +PHENERGAN 25 MG25 M1 PO; +PROTONIX40 MG PO; +PROZAC40 MG PO; +VISTARIL50 MG PO
[2020-01-07 05:27] LABS: ABSOLUTE BASOPHILS 0.1 thou/uL (0.0-0.2); ABSOLUTE LYMPHOCYTES 1.5 thou/uL (0.8-5.3); ABSOLUTE NEUTROPHILS 11.3 thou/uL (1.6-8.1); BASOPHILS 0.5 %; EOSINOPHILS 0.1 %; HEMOGLOBIN 15.2 gm/dL (14.0-18.0); LYMPHOCYTES 10.6 %; MCH 29.1 pg (26.0-34.0); MCHC 33.7 g/dL (28.0-37.0); MCV 86.3 fL (80.0-100.0); MONOCYTES 8.9 %; MPV 7.5 fl. (7.2-11.1); NUCLEATED RBCS 0 /100WBC; PLATELET COUNT* 273 thou/uL (150-400); POLYS 79.9 %; RBC 5.22 mil/uL (4.50-6.00); RDW-CV 14.5 % (10.5-14.5)
[2020-01-07 05:29] LABS: ABSOLUTE MONOCYTES 1.3 thou/uL (0.0-1.2); WBC 14.1 thou/uL (4.0-11.0)
[2020-01-07 05:34] LABS: CALCIUM 9.5 mg/dL (8.5-10.1); CREATININE 1.4 mg/dL (0.6-1.3); POTASSIUM 3.4 mmol/L (3.5-5.1)
[2020-01-07 05:38] LABS: ALBUMIN 4.8 g/dL (3.4-5.0); MAGNESIUM 1.7 mg/dL (1.8-2.4); TOTAL BILIRUBIN 3.4 mg/dL (<0.1-1.0); TOTAL PROTEIN 8.5 g/dL (6.4-8.2)
[2020-01-07 08:32] VITALS: BP 120/77
--- NOTE | 2020-01-07 10:36 | NUR ---
RECIEVED REPORT FROM CONSTANTINO SHAIKH. PT ADMIT. ARRIVED ON UNIT AT 0841. MEDS GIVEN THIS AM PER APR. PT ACTIVELY ALCOHOL WITHDRAWING. PT UP ADLIB. STABLE ON FEET. IS HAVING EPISODES OF BURPING, AND NAUSEA. IV INTACT. HEART MONITOR ATTACHED AT SR/SB. CALL LIGHT WITHIN REACH. WILL CONTINUE TO MONITOR.
--- NOTE | 2020-01-07 12:38 | CON ---
[address] [address] CONSULTATION Name: ROOSEVELT IBRAHIM Room: [address] IN M.R.#: [id number] Admission: 01/07/20 Attend Phys: Keo Pyle Discharge: Date of : 88 Report #: [id number] THIS REPORT FOR: //name// cc: USMAN - No family physician/PCP USMAN - No family physician/PCP ~ DATE OF SERVICE: 01/07/2020 Please note at the time of this dictation, the patient was seen and physically examined by myself. REASON FOR CONSULTATION: Recurrent nausea, vomiting, and abdominal pain. HISTORY OF PRESENT ILLNESS: This is a 29-year-old male who presented for worsening of his nausea and vomiting. He states he has similar episodes periodically. Last time he was seen by us was in 01/2018 and 02/2018 for the exact same cause for his nausea, vomiting, abdominal pain. Considering that it was likely related to cyclic vomiting syndrome, he has never had an upper scope done or lower scope. He is currently complaining of no fever or chills, but he has increased nausea and vomiting, which has been worse and very persistent in nature. He states it has been the worst that it has been for quite some time. Normally he may have some episodes at home that he can handle. He gets sick just usually once, but this was reoccurring. He states he continues to have the abdominal discomfort. The patient still smokes marijuana at least daily to every other day as well, but he states he has cut back on his drinking to only a pint every 2 days. He denies any hematemesis or any bright red or melanotic stool at this time. ALLERGIES: No known drug allergies. MEDICATIONS FROM HOME: He takes some pantoprazole. He has promethazine and Ativan. PAST MEDICAL HISTORY: Alcohol abuse, cyclic vomiting. PAST SURGICAL HISTORY: Negative. FAMILY HISTORY: Negative for any GI or female cancers. SOCIAL HISTORY: Positive for tobacco, positive for alcohol 1 pint every 2 days and marijuana use on a regular basis. REVIEW OF SYSTEMS: Twelve-point review of systems is essentially negative except what is [place] [address] CONSULTATION Name: ROOSEVELT IBRAHIM Room: [address] IN [facility]#: [id number] Admission: 01/07/20 Attend Phys: Keo Pyle Discharge: Date of : 88 Report #: [id number] PHYSICAL EXAMINATION: VITAL SIGNS: Temperature 36.7, pulse 60, respirations 20, blood pressure 120/77. HEART: Regular rate and rhythm. LUNGS: Diminished, but clear. ABDOMEN: Soft, positive bowel sounds in all 4 quadrants with no masses noted; however, tenderness noted throughout, very generalized. LABORATORY DATA: Hemoglobin is 15.2, white count is 14.1, platelets 273. BUN is 10, creatinine 1.4, GFR is 60. Total bilirubin is 3.4, alkaline phosphatase is 61, ALT 25, AST 35. CT of the abdomen and pelvis done on the showed some mild circumferential mural thickening in the distal esophagus and some hepatic steatosis. IMPRESSION: 1. Nausea and vomiting, recurrent. 2. Abdominal pain. 3. Abnormal CT. 4. Alcohol abuse, recurrent. 5. Marijuana use, recurrent. PLAN: 1. EGD tomorrow with Dr. Cuello. 2. We will start some amitriptyline 50 mg at bedtime. 3. Upon discharge, he will likely need Coenzyme Q10 400 mg b.i.d. to see if this will help with some of his CVS symptoms. 4. Recommendations to quit smoking marijuana as well as alcohol consumption. 5. Further recommendations to be made once the above has been performed. Thank you for allowing us to participate in this patient's care. Please do not hesitate to call with any questions in regard to this consult. <ELECTRONICALLY SIGNED> By: Trever Cuello MD 01/07/20 1238 1147 1200Trever Cuello MD /nt
[2020-01-07 12:50] VITALS: BP 134/87
[2020-01-07 16:58] VITALS: BP 108/62
--- NOTE | 2020-01-07 17:42 | NUR ---
ADMIT DONE AND IN CHART. GIRLFRIEND AT BEDSIDE. IV INTACT LEFT FOREARM. THIAMINE RUNNING PIGGYBACK TO D5, BOTH AT 100. HEART MONITOR ATTACHED AT SB. PT LYING IN BED. IS HAVING ACTIVE EPISODES OF VOMITING. SCHEDULED EGD FOR TOMORROW. TO BE NPO AT MIDNIGHT. MEDS PER MAR. HOURLY ROUNDING PERFORMED. PT UP ADLIB. IS STABLE ON FEET. CALL LIGHT WITHIN REACH. WILL CONTINUE TO MONITOR.
[2020-01-07 20:25] VITALS: BP 131/95
[2020-01-08] VITALS (7 sets, daily range): BP systolic 116–153; BP diastolic 60–95
[2020-01-08 04:22] LABS: ABSOLUTE BASOPHILS 0.1 thou/uL (0.0-0.2); ABSOLUTE EOSINOPHILS 0.1 thou/uL (0.0-0.7); ABSOLUTE MONOCYTES 0.8 thou/uL (0.0-1.2); ABSOLUTE NEUTROPHILS 4.5 thou/uL (1.6-8.1); BASOPHILS 0.7 %; EOSINOPHILS 0.8 %; LYMPHOCYTES 26.9 %; MCH 29.7 pg (26.0-34.0); MCHC 34.1 g/dL (28.0-37.0); MONOCYTES 10.4 %; MPV 8.7 fl. (7.2-11.1); NUCLEATED RBCS 0 /100WBC; POLYS 61.2 %; RBC 4.25 mil/uL (4.50-6.00); RDW-CV 14.8 % (10.5-14.5); WBC 7.3 thou/uL (4.0-11.0)
[2020-01-08 04:30] LABS: CALCIUM 8.1 mg/dL (8.5-10.1); POTASSIUM 3.2 mmol/L (3.5-5.1)
[2020-01-08 04:41] LABS: HEMOGLOBIN 12.6 gm/dL (14.0-18.0)
[2020-01-08 06:57] LABS: PLATELET COUNT* 159 thou/uL (150-400)
--- NOTE | 2020-01-08 09:00 | EKG ---
[place] [address] ELECTROCARDIOGRAM REPORT Name: ROOSEVELT IBRAHIM Room: [address] ADM IN .R.#: [id number] Admission: 01/07/20 Attend Phys: Haily Vázquez Discharge: Date of : 88 Date of Service: 01/07/20611 Report #: [id number] THIS REPORT FOR: //name// [facility] ED Test Date: 2020-01-07 Test Time: 06:12:28 Pat Name: ROOSEVELT IBRAHIM Department: Room: [facility] Gender: M Telephone Directory Distributor Driver: SHAYY : 1990 Requested By: Angélica Izaguirre Order Number: [id number] MD: Gigi James Measurements Intervals [place] Rate: 70 P: 65 [place]: 139 QRS: -23 QRSD: 85 T: 1 QT: 497 QTc: 537 Interpretive Statements Sinus rhythm Atrial premature complex Borderline left axis deviation Prolonged QT interval Baseline wander in lead(s) V1 Compared to ECG 02/15/2018 18:43:40 Atrial premature complex(es) now present Prolonged QT interval now present Left anterior fascicular block no longer present Electronically Signed On 01-08-2020 9:00:11 SYSTEMS SECURITY ANALYST by Gigi James [email or web address] <ELECTRONICALLY SIGNED> By: Yevgeniy James MD, [facility] 01/08/20899 1 1 Yevgeniy James MD, [facility] /EPI
--- NOTE | 2020-01-08 09:24 | NUR ---
RECIEVED REPORT AROUND 0715. ASSUMED CARE. VS AND ASSESSMENT CHARTED. HEART MONITOR ATTACHED AT SB. IV INSERTED BY BOB MENDOZA RN. IV IN RIGHT FOREARM. FLUIDS RUNNING. PT TO HAVE EGD THIS SHIFT. IS HAVING PAIN GENERALIZED ALL OVER. ACITIVLY WITHDRAWING FROM ALCOHOL. PT LYING IN BED. REPORTED NOT HAVING ANY EPISODES OF EMESIS THROUGHOUT THE NIGHT. CALL LIGHT WITHIN REACH. WILL CONTINUE TO MONITOR.
--- NOTE | 2020-01-08 13:40 | NUR ---
Pt is A&O. Resides at home with family. Independent. No DME. No hx of HH or SNF. PT scheduled to have a EGD today, GI following. CM to provide ETOH resources at dc, if Pt is receptive. Anticipate dc in 1-2 days.
[2020-01-09] VITALS: BP 123/74
[2020-01-09 04:00] VITALS: BP 107/61
--- NOTE | 2020-01-09 06:55 | NUR ---
NO ACUTE CHANGES DURING SHIFT. ALL ROUNDINGS COMPLETED, ALL NEEDS MET. FULL ASSESSMENT COMPLETED CHARTED.
[2020-01-09 08:00] VITALS: BP 130/82
--- NOTE | 2020-01-09 09:21 | NUR ---
RECIEVED REPORT AROUND 0715. ASSUMED CARE. IV INFILTRATED. IV TAKEN. DISCHARGE ORDERS IN PLACE. NO IV ACCESS NOW. PO MEDS GIVEN PER MAR. HEART MONITOR ATTACHED AT SB/PACS. PT LYING IN BED. REPORTED SOME CRAMPING ALL OVER AT ABOUT A 7. DOES FEEL BETTER. SOME MILD NAUSEA. PT RIDE NOT TO BE HERE UNTIL AROUND 1300. CALL LIGHT WITHIN REACH. WILL CONTINUE TO MONITOR.
[2020-01-09] MEDS ORDERED: FOLIC ACID1 MG PO (09:31)
[2020-01-09] MEDS ORDERED: VITAMIN B-1100 M1 PO (09:31)
[2020-01-09] MEDS ORDERED: PROTONIX40 M4 PO (09:31)
[2020-01-09 11:00] VITALS: BP 123/86
[2020-01-09 12:15] VITALS: BP 123/86
--- NOTE | 2020-01-09 13:09 | NUR ---
DISCHARGE ORDERS RECIEVED. HEART MONITOR OFF. PT GIVEN EDUCATION ON ALCOHOL USE AND CHCF EFFECTS AND GIVEN EDUCATION ON MARIJUANA, DEHYDRATION, AND REHYDRATING. INSTRUCTED PT TO ABSTAIN FROM MARIJUANA AND ALOCOHOL USE. COMMUNICATED UNDERSTANDING. PT TO LEAVE UNIT ONCE RIDE ARRIVES. CALL LIGHT WITHIN REACH. WILL CONTINUE TO MONITOR
== END 2020-01-09 13:45 | disposition home or self-care (01) | DRG 392 ==
LOC: M.ERS 04:55 → M.TBA-ER 06:14 → M.2W 08:41
PROVIDERS: Emergency Medicine; Internal Medicine; ADMIT Internal Medicine; ATTEND Internal Medicine
PROC: 0DB68ZX Excision of Stomach, Via Natural or Artificial Opening Endoscopic, Diagnostic (ICD-10-PCS; principal; 2020-01-08)
DX: K29.70 Gastritis, unspecified, without bleeding (principal); F10.230 Alcohol dependence with withdrawal, uncomplicated; N17.9 Acute kidney failure, unspecified; F41.9 Anxiety disorder, unspecified; F12.90 Cannabis use, unspecified, uncomplicated; F17.210 Nicotine dependence, cigarettes, uncomplicated; E86.0 Dehydration; K44.9 Diaphragmatic hernia without obstruction or gangrene; K21.00 Gastro-esophageal reflux disease with esophagitis, without bleeding; G43.A0 Cyclical vomiting, in migraine, not intractable; Z20.828 Contact with and (suspected) exposure to other viral communicable diseases; Z79.899 Other long term (current) drug therapy